=== PATIENT | male | born 1950 | race Caucasian/White ===

== ENCOUNTER 2024-01-20 11:23 | Outpatient (CLI) | payer OTHER | END 2024-01-20 11:24 | disposition home or self-care (01) | LOC: CSHCT 11:23 | PROVIDERS: ATTEND Internal Medicine | DX: R91.1 Solitary pulmonary nodule (principal); J44.9 Chronic obstructive pulmonary disease, unspecified | CPT/HCPCS: 71250; 94060; 94726; 94729; 94760 ==